=== PATIENT | female | born 1955 | race Hispanic/Latino ===

== ENCOUNTER 2021-04-22 12:48 | Inpatient (IN) | payer MEDICARE ==
[~2021-04-22] VITALS: Ht 177.8 cm; Wt 99.6 kg
[2021-04-22] MEDS ORDERED: ASPIRIN 325MG TAB ONE (12:59)
[2021-04-22] MEDS ORDERED: NITROGLYCERIN 1GM OINT 1 INCH/1GM TD ONE ×2 (12:59→13:00)
[2021-04-22] MEDS ORDERED: NITROGLYCERIN 0.4 MG SL TAB SL ONE (12:59)
[2021-04-22] MEDS ORDERED: NITROGLYCERIN 0.4 MG SL TAB SL PRN ×2 (13:00→15:30)
[2021-04-22] MEDS ORDERED: ASPIRIN 325MG TAB PO ONE (13:00)
[2021-04-22 13:16] LABS: BASOPHILS % (AUTO) 0.6 % (0.0-5.0); EOSINOPHILS % (AUTO) 3.5 % (0.0-8.0); HEMATOCRIT 39.8 % (36-48); LYMPHOCYTES % (AUTO) 23.3 % (21.0-51.0); MEAN CORPUSCULAR HEMOGLOBIN 31.1 pg (27.0-33.0); MEAN CORPUSCULAR HGB CONC 33.7 g/dL (32.0-36.0); MEAN CORPUSCULAR VOLUME 92.3 fL (79-99); MONOCYTES % (AUTO) 10.3 % (3.0-13.0); NEUTROPHILS % (AUTO) 61.9 % (40.0-77.0); PLATELET COUNT (AUTO) 168 K/uL (130-400); RED BLOOD CELL COUNT(AUTO) 4.31 MIL/uL (4.00-5.50); RED CELL DISTRIBUTION WIDTH 13.6 % (11.0-15.5); WHITE BLOOD COUNT (AUTO) 4.8 K/uL (4.8-10.8)
[2021-04-22 13:36] LABS: CREATININE 0.6 mg/dL (0.5-1.5); POTASSIUM 3.8 mmol/L (3.5-5.1)
[2021-04-22 13:40] LABS: ALBUMIN 3.7 g/dL (3.5-5.0); BILIRUBIN,TOTAL 0.6 mg/dL (0.2-1.0); TOTAL PROTEIN, SERUM 7.7 g/dL (6.0-8.3)
[2021-04-22 15:09] LABS: APPEARANCE,URINE Clear (CLEAR); BILIRUBIN,URINE Negative (NEGATIVE); COLOR,URINE Yellow (YELLOW); GLUCOSE, URINE (UA) Negative (NEGATIVE); KETONES,URINE Negative (NEGATIVE); LEUKOCYTE ESTERASE ,URINE Negative (NEGATIVE); NITRATE,URINE Negative (NEGATIVE); OCCULT BLOOD,URINE Negative (NEGATIVE); PROTEIN,URINE Negative (NEGATIVE)
[2021-04-22] MEDS ORDERED: PHENAZOPYRIDINE HCL 200 MG TABLET ONE (17:09)
[2021-04-22] MEDS ORDERED: CEFTRIAXONE 1G VIAL ONE (17:09)
[2021-04-22] MEDS ORDERED: POTASSIUM BICARB/CIT AC 25 MEQ TABLET.EFF ONE (17:09)
[2021-04-22] MEDS ORDERED: 0.9%NACL 1000ML 1,000 ML IV ONE (17:12)
[2021-04-23 07:09] LABS: BASOPHILS % (AUTO) 0.5 % (0.0-5.0); EOSINOPHILS % (AUTO) 3.4 % (0.0-8.0); HEMATOCRIT 37.6 % (36-48); LYMPHOCYTES % (AUTO) 19.7 % (21.0-51.0); MEAN CORPUSCULAR HGB CONC 33.8 g/dL (32.0-36.0); MEAN CORPUSCULAR VOLUME 91.7 fL (79-99); MONOCYTES % (AUTO) 8.2 % (3.0-13.0); NEUTROPHILS % (AUTO) 67.9 % (40.0-77.0); PLATELET COUNT (AUTO) 160 K/uL (130-400); RED CELL DISTRIBUTION WIDTH 13.5 % (11.0-15.5)
[2021-04-23 07:23] LABS: ALBUMIN 3.2 g/dL (3.5-5.0); BILIRUBIN,TOTAL 0.8 mg/dL (0.2-1.0); CREATININE 0.5 mg/dL (0.5-1.5); POTASSIUM 3.7 mmol/L (3.5-5.1); TOTAL PROTEIN, SERUM 6.8 g/dL (6.0-8.3)
[2021-04-23] MEDS: ASPIRIN 81MG CHEW TAB PO SCH (09:00)
[2021-04-23] MEDS ORDERED: REGADENOSON 0.4 MG/5 ML PF SYG IVP SCH (09:00)
[2021-04-23] MEDS ORDERED: FURO20TA6 PO (13:09)
[2021-04-23] MEDS ORDERED: SERT50TA PO (13:09)
[2021-04-23] MEDS ORDERED: FISH1CAP63 PO (13:09)
[2021-04-23] MEDS ORDERED: BIOT10005 PO (13:15)
[2021-04-23] MEDS ORDERED: ASCO100031 PO (13:15)
[2021-04-23] MEDS ORDERED: MULT-1258 PO (13:15)
[2021-04-23 16:25] VITALS: BP 118/64
[2021-04-23 19:15] VITALS: BP 118/58
[2021-04-23] MEDS: SOTALOL HCL 80 MG TABLET PO SCH (20:09)
[2021-04-23 23:29] VITALS: BP 123/53
[2021-04-24 04:26] VITALS: BP 108/48
[2021-04-24] MEDS ORDERED: ACET-2247 PO (05:20)
[2021-04-24] MEDS ORDERED: ACETAMINOPHEN 325 MG TAB ONE (05:22)
[2021-04-24] MEDS: ACETAMINOPHEN 325 MG TAB PO PRN ×2 (05:25→14:10)
[2021-04-24 08:00] VITALS: BP 112/52
[2021-04-24] MEDS: ASPIRIN 81MG CHEW TAB PO SCH ×2 (09:00→14:36)
[2021-04-24] MEDS ORDERED: BIOTIN 20000 MCG PO SCH (09:00)
[2021-04-24] MEDS: FISH OIL 1000 MG/CAP PO SCH ×2 (09:00→14:36)
[2021-04-24] MEDS ORDERED: SERTRALINE HCL 50 MG TABLET PO SCH (09:00)
[2021-04-24] MEDS: SOTALOL HCL 80 MG TABLET PO SCH (09:00)
[2021-04-24] MEDS: ASCORBIC ACID 500 MG TAB PO SCH ×2 (09:00→14:36)
[2021-04-24] MEDS: MULTIVITAMIN WITH MINERALS TABLET PO SCH ×2 (09:00→14:37)
[2021-04-24 12:00] VITALS: BP 140/62
[2021-04-25] MEDS ORDERED: FUROSEMIDE 20 MG TABLET PO SCH (09:00)
[2021-06-22] MEDS ORDERED: ASCO100031 PO (13:00)
[2021-06-22] MEDS ORDERED: FISH12002 PO (13:00)
[2021-06-22] MEDS ORDERED: DICL20GE TP (13:00)
[2021-06-22] MEDS ORDERED: TUMERIC PO (13:00)
[2021-06-22] MEDS ORDERED: LOSA25TA41 PO (13:00)
[2021-06-22] MEDS ORDERED: SERT-440 PO (13:00)
[2021-06-22] MEDS ORDERED: SOTA80TA PO (13:00)
[2021-06-22] MEDS ORDERED: UBID100C45 PO (13:00)
[2021-06-22] MEDS ORDERED: CHOL100040 PO (13:00)
[2021-06-22] MEDS ORDERED: NAPR-1141 PO (13:00)
[2021-06-22] MEDS ORDERED: MULTIVITAMIN PO (13:00)
[2021-06-22] MEDS ORDERED: ACET-2893 PO (13:00)
[2021-06-22] MEDS ORDERED: [UNRECOGNIZED DRUG - OTHER] PO (13:00)
[2021-06-22] MEDS ORDERED: VITAMIN B12 PO (13:00)
[2021-06-22] MEDS ORDERED: CA C1TAB90 PO (13:00)
== END 2021-04-24 18:45 | disposition home or self-care (01) | DRG 206 ==
LOC: EDH 12:48 → OBSVTOIN 15:15 → EDHIP 15:15 → 3AH 04-23 15:52
PROVIDERS: ADMIT Internal Medicine; ATTEND Internal Medicine
DX: M94.0 Chondrocostal junction syndrome [Tietze] (principal); F41.9 Anxiety disorder, unspecified; I48.91 Unspecified atrial fibrillation; I10 Essential (primary) hypertension; F03.90 Unspecified dementia, unspecified severity, without behavioral disturbance, psychotic disturbance, mood disturbance, and anxiety; Z20.822 Contact with and (suspected) exposure to COVID-19; R53.83 Other fatigue
CPT/HCPCS: 36415; 71045; 78452; 80053; 81003; 82550; 83735; 83874; 83880; 84484; 85025; 85730; 87635; 87804; 93005; 93017; 96374; A9500; C9803; G0378; J0696; J2785; J7030

== ENCOUNTER 2021-06-25 08:22 | Day surgery (SDC) | payer MEDICARE ==
[2021-06-21 14:04] LABS: BASOPHILS % (AUTO) 0.7 % (0.0-5.0); EOSINOPHILS % (AUTO) 3.9 % (0.0-8.0); HEMATOCRIT 38.6 % (36-48); LYMPHOCYTES % (AUTO) 24.7 % (21.0-51.0); MEAN CORPUSCULAR HEMOGLOBIN 31.1 pg (27.0-33.0); MEAN CORPUSCULAR HGB CONC 32.6 g/dL (32.0-36.0); MEAN CORPUSCULAR VOLUME 95.3 fL (79-99); MONOCYTES % (AUTO) 7.8 % (3.0-13.0); NEUTROPHILS % (AUTO) 62.7 % (40.0-77.0); PLATELET COUNT (AUTO) 166 K/uL (130-400); RED BLOOD CELL COUNT(AUTO) 4.05 MIL/uL (4.00-5.50); RED CELL DISTRIBUTION WIDTH 13.6 % (11.0-15.5); WHITE BLOOD COUNT (AUTO) 4.6 K/uL (4.8-10.8)
[2021-06-21 14:30] LABS: CREATININE 0.6 mg/dL (0.5-1.5); POTASSIUM 4.4 mmol/L (3.5-5.1)
[2021-06-22 11:55] VITALS: BP 142/67
[2021-06-25] VITALS (11 sets, daily range): BP systolic 123–150; BP diastolic 61–73
[~2021-06-25] VITALS: Ht 172.7 cm; Wt 101.6 kg
[~2021-06-25 08:22] MED LIST: ACET-2893 PO; ASCO100031 PO; BIOT10005 PO; CA C1TAB90 PO; CEFAZOLIN SODIUM 1 GM VIAL IVP SCH; CHOL100040 PO; DICL20GE TP; FISH12002 PO; FURO20TA6 PO; LOSA25TA41 PO; MULTIVITAMIN PO; NAPR-1141 PO; SERT-440 PO; SOTA80TA PO; TUMERIC PO; UBID100C45 PO; VITAMIN B12 PO; [UNRECOGNIZED DRUG - OTHER] PO
[2021-06-25] MEDS ORDERED: LACTATED RINGERS 1000ML 1,000 ML IV ONE (09:00)
[2021-06-25] MEDS ORDERED: CEFAZOLIN SODIUM 1 GM VIAL ONE (09:13)
[2021-06-25] MEDS ORDERED: BUPIVACAINE/PF 0.25% 30ML VIAL IJ ONE (10:36)
[2021-06-25] MEDS ORDERED: LIDOCAINE HCL 1% 20 ML VIAL ONE (10:43)
[2021-06-25] MEDS ORDERED: PROPOFOL 10 MG/ML 20ML VIAL IV ONE (10:58)
[2021-06-25] MEDS ORDERED: MIDAZOLAM HCL 1 MG/ML 2ML VIAL ONE (10:59)
== END 2021-06-25 13:20 | disposition home or self-care (01) ==
LOC: DAH 08:22
PROVIDERS: ATTEND Urology
DX: T85.191A Other mechanical complication of implanted electronic neurostimulator of peripheral nerve electrode (lead), initial encounter (principal); Z20.822 Contact with and (suspected) exposure to COVID-19; N39.41 Urge incontinence; R35.1 Nocturia; I10 Essential (primary) hypertension; J44.9 Chronic obstructive pulmonary disease, unspecified; Z98.49 Cataract extraction status, unspecified eye; Z98.890 Other specified postprocedural states; Y83.8 Other surgical procedures as the cause of abnormal reaction of the patient, or of later complication, without mention of misadventure at the time of the procedure
CPT/HCPCS: 36415; 64585; 64595; 80048; 85025; 87635; A4213; A4215; A4221; A4222; A4223; A4510; A4600; A4663; A6207; A6260; C9803; J0690; J2250; J2704; J3490; J7120 ×2